=== PATIENT | female | born 1975 | race African-American/Black ===

== ENCOUNTER 2022-11-25 10:29 | Day surgery (SDC) | payer MEDICAID ==
[~2022-11-25] VITALS: Ht 163.8 cm; Wt 119.7 kg
[2022-11-25] MEDS ORDERED: MIDAZOLAM 2 MG/2 ML VIAL ONE (12:34)
[2022-11-25] MEDS ORDERED: LIDOCAINE 2% 100 MG/5 ML UJET TP ONE (12:34)
[2022-11-25] MEDS ORDERED: fentaNYL citrate 0.05 MG/ML VIAL ONE (12:34)
[2022-11-25] MEDS ORDERED: fentaNYL citrate 0.05 MG/ML VIAL IVP ONE (13:45)
== END 2022-11-25 14:30 | disposition home or self-care (01) ==
LOC: MDS 10:29 → MMU 10:58 → MDS 14:30
PROVIDERS: ATTEND Internal Medicine Gastroenterology
DX: Z12.11 Encounter for screening for malignant neoplasm of colon (principal); K57.30 Diverticulosis of large intestine without perforation or abscess without bleeding; I10 Essential (primary) hypertension; E66.9 Obesity, unspecified; K64.9 Unspecified hemorrhoids; Z80.0 Family history of malignant neoplasm of digestive organs; Z85.3 Personal history of malignant neoplasm of breast
CPT/HCPCS: 45378; J2250; J3010

== ENCOUNTER 2023-10-19 06:24 | Day surgery (SDC) | payer MEDICAID ==
[2023-10-17 11:21] LABS: BASOPHILS # (AUTO) 0.1 K/uL (0.00-0.22); BASOPHILS % (AUTO) 1.7 % (0.0-2.0); EOSINOPHILS % (AUTO) 0.4 % (0.0-4.0); HEMATOCRIT 34.5 % (36-48); HEMOGLOBIN 11.9 g/dL (12.0-16.0); LYMPHOCYTES # (AUTO) 1.8 K/uL (2.5-16.5); LYMPHOCYTES % (AUTO) 35.3 % (20.5-51.1); MEAN CORPUSCULAR HEMOGLOBIN 33 pg (27-31); MEAN CORPUSCULAR HGB CONC 35 g/dL (33-37); MEAN CORPUSCULAR VOLUME 95.3 fL (80-94); MONOCYTES # (AUTO) 0.4 K/uL (0.8-1.0); MONOCYTES % (AUTO) 7.3 % (1.7-9.3); NEUTROPHILS # (AUTO) 2.8 K/uL (1.8-7.7); NEUTROPHILS % (AUTO) 55.3 % (42.2-75.2); PLATELET COUNT (AUTO) 363 K/uL (140-450); RED BLOOD CELL COUNT(AUTO) 3.62 MIL/uL (4.20-5.40); RED CELL DISTRIBUTION WIDTH 17.2 % (11.6-13.7); WHITE BLOOD COUNT (AUTO) 5.1 K/uL (4.8-10.8)
[2023-10-17 11:43] LABS: CALCIUM 9.1 mg/dL (8.5-10.1); CARBON DIOXIDE 29.2 mmol/L (21-32); CREATININE 1.1 mg/dL (0.6-1.3); POTASSIUM 4.2 mmol/L (3.5-5.1)
[~2023-10-19] VITALS: Ht 162.6 cm; Wt 114.8 kg
[2023-10-19] MEDS ORDERED: ceFAZolin 2,000 MG VIAL ONE (08:42)
[2023-10-19] MEDS ORDERED: PROPOFOL 200 MG/20 ML VIAL IV ONE ×3 (09:32→10:03)
[2023-10-19] MEDS ORDERED: fentaNYL citrate 0.05 MG/ML VIAL ONE (09:32)
[2023-10-19] MEDS: BUPIVACAINE-MPF 0.25% 30 ML VIAL INJ ONE (09:45)
[2023-10-19] MEDS: LIDOCAINE/EPI 1% 1:100000 20 ML VIAL INJ ONE (09:45)
[2023-10-19] MEDS: HYDROmorphone 1 MG/ML AMP IVP PRN (10:10)
[2023-10-19] MEDS ORDERED: ONDANSETRON 4 MG/2 ML VIAL IVP PRN (10:10)
[2023-10-19] MEDS ORDERED: HYDROmorphone PFS 2 MG/ML SYR ONE (10:19)
== END 2023-10-19 11:25 | disposition home or self-care (01) ==
LOC: MDS 06:24 → MMU 06:33 → MDS 11:25
PROVIDERS: ATTEND Surgery
DX: K64.8 Other hemorrhoids (principal); I10 Essential (primary) hypertension; G47.33 Obstructive sleep apnea (adult) (pediatric); Z90.710 Acquired absence of both cervix and uterus; Z98.890 Other specified postprocedural states; Z79.899 Other long term (current) drug therapy
CPT/HCPCS: 36415; 46260; 71045; 80048; 85025; 93005; J1170; J2001; J2704; J3010; J3490; 88304